=== PATIENT | male | born 1945 | race American Indian/Alaskan Native ===

== ENCOUNTER 2018-08-07 11:12 | Inpatient (IN) | payer OTHER ==
[~2018-08-07] VITALS: Ht 167.6 cm; Wt 68.2 kg
[~2018-08-07 11:12] MED LIST: ALB0.5UD IH; ALPR-623 PO; ASPI-1265 PO; CYCL5TAB PO; DILT120T3 PO; DOCU-20 PO; DOXE50CA4 PO; HYDR-4353 PO; LEVO750T46 PO; MIRT30TA8 PO; OMEP40CA37 PO; PRAV20TA PO; TOP100T PO
--- NOTE | 2018-08-07 11:22 | NUR ---
Pt taken out to CT
[2018-08-07 11:28] LABS: BASOPHILS # (AUTO) 0.1 X10'3 (0-0.2); BASOPHILS % (AUTO) 0.7 % (0-1); EOSINOPHILS # (AUTO) 0.2 X10'3 (0-0.9); EOSINOPHILS % (AUTO) 3.5 % (0-6); HEMATOCRIT 35.4 % (42.0-52.0); HEMOGLOBIN 11.7 g/dl (14.0-17.9); LYMPHOCYTES # (AUTO) 2.4 X10'3 (1.1-4.8); MEAN CORPUSCULAR HEMOGLOBIN 29.2 PG (27.0-31.0); MEAN CORPUSCULAR HGB CONC 33.1 g/dL (33.0-36.5); MEAN CORPUSCULAR VOLUME 88.2 FL (78-98); MEAN PLATELET VOLUME 6.4 FL (7.4-10.4); MONOCYTES # (AUTO) 0.5 X10'3 (0-0.9); MONOCYTES % (AUTO) 6.8 % (2-12); NEUTROPHILS # (AUTO) 3.9 X10'3 (1.8-7.7); PLATELET COUNT 392 X10'3 (140-440); RED BLOOD COUNT 4.01 X10'6 (4.70-6.10); WHITE BLOOD COUNT 7.1 X10'3 (4.5-11.0)
[2018-08-07 11:46] LABS: PARTIAL THROMBOPLASTIN TIME 27 SECONDS (22-32)
[2018-08-07 11:47] LABS: ALANINE AMINOTRANSFERASE 17 U/L (12-78); ALBUMIN 3.5 G/DL (3.4-5.0); ALKALINE PHOSPHATASE 64 IU/L (46-116); ANION GAP 7 (8-16); ASPARTATE AMINO TRANSFERASE 12 U/L (10-37); BILIRUBIN,TOTAL 0.3 MG/DL (0.1-1.0); BLOOD UREA NITROGEN 25 MG/DL (7-18); CALCIUM 9.1 MG/DL (8.5-10.1); CHLORIDE 106 MMOL/L (99-107); CREATININE 1.04 MG/DL (0.60-1.10); GLUCOSE 88 MG/DL (70-104); POTASSIUM 4.4 MMOL/L (3.5-5.1); SODIUM 138 MMOL/L (135-145); TOTAL CARBON DIOXIDE 25.5 MMOL/L (24-32); TOTAL PROTEIN 7.1 G/DL (6.4-8.2); eGFR 70 ML/MIN
[2018-08-07 11:50] LABS: TROPONIN I < 0.04 NG/ML (0.0-0.05)
[2018-08-07] MEDS ORDERED: potassium CL 10mEq/100ml bag 100 ML IV PRN (12:10)
[2018-08-07] MEDS ORDERED: acetaminophen 325mg tablet PO PRN ×2 (12:10)
[2018-08-07] MEDS ORDERED: potassium Cl 40MEQ/NS 500ml 500 ML IV PRN (12:10)
[2018-08-07] MEDS ORDERED: magnesium 4gm in 100ml NS 100 ML IV PRN (12:10)
[2018-08-07] MEDS ORDERED: mag hydrox/Alum hydrox/simeth 30ml oral suspension PO PRN (12:10)
[2018-08-07] MEDS ORDERED: potassium Cl 20 mEq SR tablet PO PRN ×2 (12:10)
[2018-08-07] MEDS ORDERED: magnesium Cl slow-release 64mg tablet PO PRN (12:10)
[2018-08-07] MEDS ORDERED: magnesium 2GM in 50ml NS 50 ML IV PRN (12:10)
[2018-08-07] MEDS ORDERED: magnesium hydroxide 30ml (MOM) UD suspension PO PRN (12:10)
[2018-08-07] MEDS ORDERED: aspirin 325mg tablet PO ONE (12:10)
[2018-08-07] MEDS ORDERED: HYDROcodone/acetaminophen 5mg/325mg tablet PO ONE (12:15)
[2018-08-07 12:31] LABS: URINE AMPHETAMINE SCREEN NEGATIVE (Neg); URINE BARBITUATE SCREEN NEGATIVE (Neg); URINE BENZODIAZEPINES SCREEN POSITIVE (Neg); URINE CANNABINOID SCREEN NEGATIVE (Neg); URINE COCAINE SCREEN NEGATIVE (Neg); URINE METHADONE SCREEN NEGATIVE (Neg); URINE OPIATE SCREEN POSITIVE (Neg); URINE PHENCYCLIDINE SCREEN NEGATIVE (Neg)
[2018-08-07 12:48] LABS: ETHANOL < 0.010 GM/DL (0.0-0.010)
--- NOTE | 2018-08-07 13:44 | NUR ---
RECEIVED REPORT FROM BETSY MCKEON IN ER
--- NOTE | 2018-08-07 14:11 | NUR ---
PT ARRIVED ON FLOOR IN [facility] BUT WALKED FROM [facility] TO BED
--- NOTE | 2018-08-07 14:12 | NUR ---
SENT A PAGE TO HOSPITALIST ASKING ABOUT PT MED REQUEST OF JOSE A
[2018-08-07 14:15] VITALS: BP 113/76
[2018-08-07] MEDS ORDERED: pantoprazole 40mg Tablet.DR PO PRN (15:40)
[2018-08-07] MEDS ORDERED: albuterol 2.5 mg/0.5ml nebule NEB PRN (15:40)
[2018-08-07] MEDS ORDERED: topiramate 25mg tablet PO PRN (15:40)
[2018-08-07] MEDS: ALPRAZolam 0.25mg tablet PO PRN ×2 (16:39→22:03)
[2018-08-07] MEDS: HYDROcodone/acetaminophen 10/325mg tab PO PRN ×2 (16:40→21:19)
[2018-08-07] MEDS ORDERED: pneumococcal 23-VAL P-sac vacc 25 mcg/0.5ml vial IMVAC ONE (17:00)
[2018-08-07] MEDS ORDERED: albuterol 2.5 MG/3 ML nebule NEB PRN (17:35)
[2018-08-07 18:00] VITALS: BP 111/65
--- NOTE | 2018-08-07 18:21 | NUR ---
gave report to kenia arellano
--- NOTE | 2018-08-07 19:40 | NUR ---
RC'D VERBAL REPORT FROM JAXSON AND ASSUMED CARE OF PATIENT
[2018-08-07] MEDS: cyclobenzaprine 10mg tablet PO PRN (21:17)
[2018-08-07] MEDS: doxepin 25mg capsule PO SCH (21:17)
[2018-08-07] MEDS: docusate sod 250mg capsule PO SCH (21:18)
[2018-08-07] MEDS: mirtazapine 15mg tablet PO SCH (21:18)
[2018-08-07 22:00] VITALS: BP 108/66
[2018-08-08 02:00] VITALS: BP 93/47
[2018-08-08] MEDS: HYDROcodone/acetaminophen 10/325mg tab PO PRN ×4 (05:50→20:31)
[2018-08-08 06:00] VITALS: BP 117/75
--- NOTE | 2018-08-08 06:20 | NUR ---
received report from kenia arellano
--- NOTE | 2018-08-08 06:22 | NUR ---
REPORT GIVEN TO JAXSON MCKEON
[2018-08-08 07:20] LABS: BASOPHILS % (AUTO) 0.8 % (0-1); EOSINOPHILS # (AUTO) 0.3 X10'3 (0-0.9); EOSINOPHILS % (AUTO) 4.5 % (0-6); HEMATOCRIT 33.1 % (42.0-52.0); HEMOGLOBIN 11.1 g/dl (14.0-17.9); LYMPHOCYTES # (AUTO) 2.2 X10'3 (1.1-4.8); LYMPHOCYTES % (AUTO) 36.9 % (21-51); MEAN CORPUSCULAR HGB CONC 33.4 g/dL (33.0-36.5); MEAN PLATELET VOLUME 6.9 FL (7.4-10.4); MONOCYTES # (AUTO) 0.5 X10'3 (0-0.9); MONOCYTES % (AUTO) 7.6 % (2-12); NEUTROPHILS # (AUTO) 3.1 X10'3 (1.8-7.7); NEUTROPHILS % (AUTO) 50.2 % (42-75); PLATELET COUNT 389 X10'3 (140-440); RED BLOOD COUNT 3.81 X10'6 (4.70-6.10); RED CELL DISTRIBUTION WIDTH 14.7 % (11.5-14.5); WHITE BLOOD COUNT 6.1 X10'3 (4.5-11.0)
[2018-08-08 07:21] LABS: ANION GAP 5 (8-16); BLOOD UREA NITROGEN 23 MG/DL (7-18); BUN/CREATININE RATIO 22.1 (5.4-32.0); CALCIUM 8.5 MG/DL (8.5-10.1); CHLORIDE 108 MMOL/L (99-107); CHOL/HDL RATIO 4.6 (0.00-4.99); CHOLESTEROL 199 MG/DL (0-200); CREATININE 1.04 MG/DL (0.60-1.10); GLUCOSE 102 MG/DL (70-104); HDL CHOLESTEROL 43 MG/DL (35-60); LDL CHOLESTEROL 136 MG/DL (50-100); MAGNESIUM 1.8 MG/DL (1.5-2.4); POTASSIUM 4.3 MMOL/L (3.5-5.1); SODIUM 143 MMOL/L (135-145); TOTAL CARBON DIOXIDE 30.1 MMOL/L (24-32); TRIGLYCERIDES 149 MG/DL (20-135); eGFR 70 ML/MIN
[2018-08-08] MEDS: K and/or MAG REPLACEMENT MC SCH (07:58)
[2018-08-08] MEDS: enoxaparin 40mg/0.4ml syringe SQ SCH (08:00)
[2018-08-08] MEDS ORDERED: aspirin 81mg tab.chew PO SCH (08:00)
[2018-08-08] MEDS ORDERED: atorvastatin 10mg tablet PO SCH (08:00)
[2018-08-08] MEDS: ALPRAZolam 0.25mg tablet PO PRN ×3 (08:08→22:02)
[2018-08-08] MEDS: docusate sod 250mg capsule PO SCH ×2 (08:14→20:32)
[2018-08-08 10:00] VITALS: BP 117/80
[2018-08-08] MEDS ORDERED: LORazepam 2 mg/ml vial IV ONE (10:45)
[2018-08-08 14:00] VITALS: BP 142/85
--- NOTE | 2018-08-08 15:12 | NUR ---
Malnutrition consult: Pt admit w/ L arm weakness and TIA concerns. PO 50% avg meals w/ no visible muscle/fat wasting, no edema/wounds, and mild weakness present. Current wt is pt stated; NICOL d/w RN for scaled wt for accurate wt hx. At this time pt does not meet malnutrition requirements. Addendum: 08/08/18 at [address] Amended: Links added.
[2018-08-08 18:00] VITALS: BP 120/84
--- NOTE | 2018-08-08 18:20 | NUR ---
GAVE REPORT TO FOREIGN Lozano RN
[2018-08-08] MEDS: cyclobenzaprine 10mg tablet PO PRN (20:29)
[2018-08-08] MEDS: mirtazapine 15mg tablet PO SCH (20:30)
[2018-08-08] MEDS: doxepin 25mg capsule PO SCH (20:32)
[2018-08-08 23:14] VITALS: BP 147/92
[2018-08-09] MEDS: HYDROcodone/acetaminophen 10/325mg tab PO PRN ×4 (03:36→21:29)
[2018-08-09] MEDS: ALPRAZolam 0.25mg tablet PO PRN ×4 (03:36→21:29)
[2018-08-09 06:00] VITALS: BP 119/73
--- NOTE | 2018-08-09 06:01 | NUR ---
Problems reprioritized. Patient report given, questions answered & plan of care reviewed with Roseann MCKEON.
[2018-08-09 06:14] LABS: BASOPHILS % (AUTO) 0.7 % (0-1); EOSINOPHILS # (AUTO) 0.2 X10'3 (0-0.9); EOSINOPHILS % (AUTO) 3.3 % (0-6); HEMATOCRIT 33.4 % (42.0-52.0); HEMOGLOBIN 11.1 g/dl (14.0-17.9); LYMPHOCYTES # (AUTO) 1.5 X10'3 (1.1-4.8); LYMPHOCYTES % (AUTO) 28.1 % (21-51); MEAN CORPUSCULAR HEMOGLOBIN 29.3 PG (27.0-31.0); MEAN CORPUSCULAR HGB CONC 33.2 g/dL (33.0-36.5); MEAN CORPUSCULAR VOLUME 88.3 FL (78-98); MEAN PLATELET VOLUME 7.2 FL (7.4-10.4); MONOCYTES # (AUTO) 0.4 X10'3 (0-0.9); MONOCYTES % (AUTO) 8.3 % (2-12); NEUTROPHILS # (AUTO) 3.2 X10'3 (1.8-7.7); NEUTROPHILS % (AUTO) 59.6 % (42-75); PLATELET COUNT 370 X10'3 (140-440); RED BLOOD COUNT 3.79 X10'6 (4.70-6.10); RED CELL DISTRIBUTION WIDTH 14.6 % (11.5-14.5); WHITE BLOOD COUNT 5.4 X10'3 (4.5-11.0)
[2018-08-09 06:18] LABS: ALBUMIN 3.1 G/DL (3.4-5.0); ANION GAP 6 (8-16); BLOOD UREA NITROGEN 19 MG/DL (7-18); BUN/CREATININE RATIO 16.2 (5.4-32.0); CALCIUM 8.8 MG/DL (8.5-10.1); CHLORIDE 107 MMOL/L (99-107); CREATININE 1.17 MG/DL (0.60-1.10); GLUCOSE 69 MG/DL (70-104); MAGNESIUM 1.8 MG/DL (1.5-2.4); POTASSIUM 3.8 MMOL/L (3.5-5.1); SODIUM 142 MMOL/L (135-145); TOTAL CARBON DIOXIDE 28.7 MMOL/L (24-32); eGFR 61 ML/MIN
--- NOTE | 2018-08-09 06:20 | NUR ---
received report from judah mann rn
[2018-08-09] MEDS: K and/or MAG REPLACEMENT MC SCH (07:19)
[2018-08-09] MEDS: docusate sod 250mg capsule PO SCH ×2 (07:25→19:50)
[2018-08-09] MEDS: enoxaparin 40mg/0.4ml syringe SQ SCH (07:27)
[2018-08-09] MEDS: atorvastatin 20mg tablet PO SCH (07:35)
[2018-08-09] MEDS: clopidogrel 75mg tablet PO SCH (07:36)
[2018-08-09 10:00] VITALS: BP 131/80
[2018-08-09] MEDS: ondansetron/PF 4mg/2ml inj IV PRN ×2 (11:35→19:49)
[2018-08-09] MEDS ORDERED: LORazepam 2 mg/ml vial IV PRN (12:00)
[2018-08-09 18:00] VITALS: BP 134/87
--- NOTE | 2018-08-09 18:12 | NUR ---
gave report to judah mann rn
[2018-08-09] MEDS: mirtazapine 15mg tablet PO SCH (19:50)
[2018-08-09] MEDS: doxepin 25mg capsule PO SCH (19:50)
[2018-08-09] MEDS: cyclobenzaprine 10mg tablet PO PRN (21:29)
[2018-08-09 22:00] VITALS: BP 152/95
[2018-08-10] MEDS: ondansetron/PF 4mg/2ml inj IV PRN ×2 (05:39→12:41)
[2018-08-10 06:00] VITALS: BP 159/92
[2018-08-10 06:08] LABS: BASOPHILS # (AUTO) 0.1 X10'3 (0-0.2); BASOPHILS % (AUTO) 0.6 % (0-1); EOSINOPHILS # (AUTO) 0.1 X10'3 (0-0.9); EOSINOPHILS % (AUTO) 1.4 % (0-6); HEMATOCRIT 38.3 % (42.0-52.0); HEMOGLOBIN 12.5 g/dl (14.0-17.9); LYMPHOCYTES # (AUTO) 1.1 X10'3 (1.1-4.8); LYMPHOCYTES % (AUTO) 12.9 % (21-51); MEAN CORPUSCULAR HEMOGLOBIN 28.7 PG (27.0-31.0); MEAN CORPUSCULAR HGB CONC 32.7 g/dL (33.0-36.5); MEAN CORPUSCULAR VOLUME 87.9 FL (78-98); MEAN PLATELET VOLUME 7.1 FL (7.4-10.4); MONOCYTES # (AUTO) 0.4 X10'3 (0-0.9); MONOCYTES % (AUTO) 5.5 % (2-12); NEUTROPHILS # (AUTO) 6.6 X10'3 (1.8-7.7); NEUTROPHILS % (AUTO) 79.6 % (42-75); PLATELET COUNT 442 X10'3 (140-440); RED BLOOD COUNT 4.35 X10'6 (4.70-6.10); RED CELL DISTRIBUTION WIDTH 14.7 % (11.5-14.5); WHITE BLOOD COUNT 8.2 X10'3 (4.5-11.0)
[2018-08-10 06:12] LABS: ALBUMIN 3.6 G/DL (3.4-5.0); ANION GAP 11 (8-16); BLOOD UREA NITROGEN 13 MG/DL (7-18); BUN/CREATININE RATIO 14.8 (5.4-32.0); CALCIUM 9.9 MG/DL (8.5-10.1); CHLORIDE 105 MMOL/L (99-107); CREATININE 0.88 MG/DL (0.60-1.10); GLUCOSE 114 MG/DL (70-104); POTASSIUM 3.8 MMOL/L (3.5-5.1); SODIUM 144 MMOL/L (135-145); TOTAL CARBON DIOXIDE 28.3 MMOL/L (24-32); eGFR 85 ML/MIN
--- NOTE | 2018-08-10 06:24 | NUR ---
Problems reprioritized. Patient report given, questions answered & plan of care reviewed with MIKE Toussaint.
--- NOTE | 2018-08-10 06:26 | NUR ---
Patient in room [facility]. I have received report from Vera Lozano RN and had the opportunity to ask questions and assume patient care.
[2018-08-10] MEDS: K and/or MAG REPLACEMENT MC SCH (08:00)
[2018-08-10] MEDS: docusate sod 250mg capsule PO SCH ×2 (08:00→09:15)
[2018-08-10] MEDS ORDERED: metoclopramide 5 mg/ml inj IV ONE (09:05)
[2018-08-10] MEDS: cyclobenzaprine 10mg tablet PO PRN (09:16)
[2018-08-10] MEDS: HYDROcodone/acetaminophen 10/325mg tab PO PRN ×2 (09:16→16:33)
[2018-08-10] MEDS: clopidogrel 75mg tablet PO SCH (09:16)
[2018-08-10] MEDS: ALPRAZolam 0.25mg tablet PO PRN ×2 (09:16→16:34)
[2018-08-10] MEDS: atorvastatin 20mg tablet PO SCH (09:16)
[2018-08-10] MEDS: enoxaparin 40mg/0.4ml syringe SQ SCH (09:16)
[2018-08-10 10:00] VITALS: BP 136/95
[2018-08-10] MEDS ORDERED: ONDA4TAB6 PO (11:07)
[2018-08-10 17:19] VITALS: BP 148/102
--- NOTE | 2018-08-10 17:47 | NUR ---
PT DISCHARGED IN STABLE CONDITION WITH BELONGINGS, NEW RX, PIV DC'D AND DRESSED, TELE OFF. PT WALKED OUT WITH FAMILY MEMBER.
== END 2018-08-10 17:45 | disposition home or self-care (01) | DRG 74 ==
LOC: ER 11:14 → OBSVTOIN 13:10 → ORTHO 4S 13:10 → CMPBEDREQ 08-08 19:46
PROVIDERS: ADMIT Hospitalist; ATTEND Internal Medicine
PROC: 3E0234Z Introduction of Serum, Toxoid and Vaccine into Muscle, Percutaneous Approach (ICD-10-PCS; principal; 2018-08-07)
DX: G56.32 Lesion of radial nerve, left upper limb (principal); G89.4 Chronic pain syndrome; I25.10 Atherosclerotic heart disease of native coronary artery without angina pectoris; I48.0 Paroxysmal atrial fibrillation; I50.9 Heart failure, unspecified; I65.01 Occlusion and stenosis of right vertebral artery; B19.20 Unspecified viral hepatitis C without hepatic coma; Z60.2 Problems related to living alone; F41.9 Anxiety disorder, unspecified; F17.210 Nicotine dependence, cigarettes, uncomplicated; J44.9 Chronic obstructive pulmonary disease, unspecified; K21.9 Gastro-esophageal reflux disease without esophagitis; M48.02 Spinal stenosis, cervical region; Z86.73 Personal history of transient ischemic attack (TIA), and cerebral infarction without residual deficits; Z79.899 Other long term (current) drug therapy; Z23 Encounter for immunization; Z79.82 Long term (current) use of aspirin
CPT/HCPCS: 36415; 70450; 70544; 70547; 70551; 71045; 72141; 80048; 80053; 80061; 80305; 80320; 82948; 83735; 84484; 85025; 85610; 85730; 87070; 90732; 93005; 93306; 94760; 97110; 97116; 97161; 97530; 99285; G0378; J1650; J2060; J2405; J2765; J7611